=== PATIENT | female | born 1990 | race Hispanic/Latino ===

== ENCOUNTER 2018-05-29 04:01 | Emergency (ER) | payer SELFPAY ==
[~2018-05-29] VITALS: Ht 155.4 cm; Wt 80.0 kg
[2018-05-29 05:00] LABS: INFLUENZA A NONE DETECTED (NONE DETECT); INFLUENZA B NONE DETECTED (NONE DETECT)
[2018-05-29] MEDS ORDERED: AMOXICILLIN500 MG PO (05:28)
[2018-05-29 05:50] VITALS: BP 120/82
== END 2018-05-29 05:50 | disposition home or self-care (01) | DRG 153 ==
LOC: ED 04:01
PROVIDERS: Emergency Medicine
DX: J02.9 Acute pharyngitis, unspecified (principal)

== ENCOUNTER 2020-04-16 21:54 | Emergency (ER) | payer MEDICAID ==
[~2020-04-16] VITALS: Ht 155.4 cm; Wt 81.0 kg
[~2020-04-16 21:54] MED LIST: AMOXICILLIN500 MG PO
[2020-04-16 23:11] LABS: IMMATURE GRANULOCYTES 0.4 % (0.0-5.0); MEAN CORPUSCULAR HGB 29.1 pG CALC (26.0-32.0); MEAN CORPUSCULAR HGB CONC 32.2 g/dL CAL (32.0-36.0); NEUT# 16.4 thou/uL (2.00-7.15); RED BLOOD COUNT 4.26 mill/uL (4.20-5.60); RED CELL DISTRI WIDTH 11.8 % (11.5-15.5)
[2020-04-16 23:20] LABS: HEMATOCRIT 38.5 % (37.0-47.0); HEMOGLOBIN 12.4 g/dl (12.0-16.0); MEAN CELL VOLUME 90.4 fL CALC (80.0-100.0)
[2020-04-16 23:25] LABS: ANION GAP 14 (6-22 (CALC)); BUN 10 mg/dL (7-17); BUN/CREATININE RATIO 15 (12-20 (CALC)); CARBON DIOXIDE 25 mmol/l (22-30); CHLORIDE 100 mmol/l (95-108); CREATININE 0.7 mg/dL (0.5-1.0); GFR > 60 ML/MIN (>=60 (CALC)); GFR FOR AFR.AMER. > 60 ML/MIN (>=60 (CALC)); POTASSIUM 4.1 mmol/l (3.5-5.1); SODIUM 135 mmol/l (137-146)
[2020-04-16 23:37] LABS: ALBUMIN 4.6 g/dL (3.2-5.0); ALKALINE PHOSPHATASE 96 u/l (38-126); BILIRUBIN, TOTAL 1.2 mg/dL (0.0-1.4); SGOT/AST 53 u/l (14-36); TOTAL PROTEIN 8.2 g/dL (6.3-8.2)
[2020-04-16 23:50] LABS: URINE BILIRUBIN - DIPSTICK NEGATIVE (NEGATIVE); URINE BLOOD DIPSTICK NEGATIVE (NEGATIVE); URINE COLOR YELLOW; URINE GLUCOSE - DIPSTICK NEGATIVE (NEGATIVE); URINE KETONE NEGATIVE (NEGATIVE); URINE LEUK ESTERASE TRACE (NEGATIVE); URINE NITRITE - DIPSTICK NEGATIVE (Negative); URINE PROTEIN - DIPSTICK NEGATIVE (NEG-TRACE); URINE UROBILINOGEN - DIPSTICK 0.2 E.U./dL (0.2)
[2020-04-17 02:09] LABS: HEMATOCRIT 33.7 % (37.0-47.0); IMMATURE GRANULOCYTES 0.5 % (0.0-5.0); MEAN CELL VOLUME 91.1 fL CALC (80.0-100.0); MEAN CORPUSCULAR HGB 29.7 pG CALC (26.0-32.0); MEAN CORPUSCULAR HGB CONC 32.6 g/dL CAL (32.0-36.0); NEUT# 15.49 thou/uL (2.00-7.15); RED BLOOD COUNT 3.7 mill/uL (4.20-5.60); RED CELL DISTRI WIDTH 11.8 % (11.5-15.5)
[2020-04-17] MEDS ORDERED: AUGMENTIN500TAB PO (02:28)
[2020-04-17 02:30] VITALS: BP 115/66
== END 2020-04-17 02:30 | disposition home or self-care (01) ==
LOC: ED 21:54
PROVIDERS: Emergency Medicine
DX: J03.90 Acute tonsillitis, unspecified (principal); Z20.828 Contact with and (suspected) exposure to other viral communicable diseases
CPT/HCPCS: Q9967

== ENCOUNTER 2024-06-11 08:43 | Emergency (ER) | payer SELFPAY ==
[2024-06-11] VITALS (7 sets, daily range): BP systolic 112–123; BP diastolic 72–84
[~2024-06-11] VITALS: Ht 154.9 cm; Wt 86.0 kg
[~2024-06-11 08:43] MED LIST changes: +ALPRAZOLAM0.5 M2 PO; +AUGMENTIN500TAB PO; +PAROXETINE10 MG PO
[2024-06-11] MEDS ORDERED: SODIUM CHLORIDE 0.9% 1,000 ML IV ONE (09:00)
[2024-06-11] MEDS ORDERED: ONDANSETRON HCl 4 MG/2 ML SDV IV ONE (09:00)
[2024-06-11 09:28] LABS: BASO% 0.3 % (0-3); EOS% 2.9 % (0-8); HEMOGLOBIN 12.5 g/dl (12.0-16.0); IMMATURE GRANULOCYTES 0.4 % (0.0-5.0); LYMPH% 24.1 % (15-41); MEAN CORPUSCULAR HGB 28.3 pG CALC (26.0-32.0); MEAN CORPUSCULAR HGB CONC 30.5 g/dL CAL (32.0-36.0); MONO% 5.3 % (2-13); NEUT# 7.16 thou/uL (2.00-7.15); RED BLOOD COUNT 4.41 mill/uL (4.20-5.60); RED CELL DISTRI WIDTH 12.6 % (11.5-15.5)
[2024-06-11 09:44] LABS: ALBUMIN 4.4 g/dL (3.2-5.0); BILIRUBIN, TOTAL 1.2 mg/dL (0.02-1.3); CREATININE 0.6 mg/dL (0.5-1.0); POTASSIUM 3.9 mmol/l (3.5-5.1); TOTAL PROTEIN 8.1 g/dL (6.3-8.2)
[2024-06-11] MEDS ORDERED: KETOROLAC TROMETHAMINE 30 MG/ML SDV IV ONE (09:45)
[2024-06-11] MEDS ORDERED: METOCLOPRAMIDE HCL 10 MG/2 ML SDV IV ONE (09:45)
[2024-06-11] MEDS ORDERED: DiphenhydrAMINE HCL 50 MG/ML SDV IV ONE (09:45)
[2024-06-11] MEDS ORDERED: DEXAMETHASONE SOD. PHOSPHATE 10 MG/ML VIAL IV ONE (10:40)
== END 2024-06-11 11:22 | disposition home or self-care (01) | DRG 103 ==
LOC: ED 08:43
PROVIDERS: Family Medicine
DX: R51.9 Headache, unspecified (principal); F41.9 Anxiety disorder, unspecified; Z20.822 Contact with and (suspected) exposure to COVID-19

== ENCOUNTER 2024-07-23 11:08 | Emergency (ER) | payer OTHER ==
[~2024-07-23] VITALS: Ht 154.9 cm; Wt 86.0 kg
[2024-07-23] VITALS (8 sets, daily range): BP systolic 110–141; BP diastolic 71–98
[2024-07-23] MEDS ORDERED: SODIUM CHLORIDE 0.9% 1,000 ML IV STA (11:35)
[2024-07-23] MEDS ORDERED: DiphenhydrAMINE HCL 50 MG/ML SDV IV STA (11:35)
[2024-07-23] MEDS ORDERED: FAMOTIDINE 10MG/ML 2ML SDV IV STA (11:39)
[2024-07-23] MEDS ORDERED: METOCLOPRAMIDE HCL 10 MG/2 ML SDV IV ONE (11:40)
[2024-07-23] MEDS ORDERED: BUTALBITAL-APAP-CAFFEINE 50-325-40 TAB PO ONE (11:40)
[2024-07-23 11:57] LABS: BASO% 0.4 % (0-3); EOS% 2.3 % (0-8); HEMATOCRIT 37.9 % (37.0-47.0); HEMOGLOBIN 12.1 g/dl (12.0-16.0); IMMATURE GRANULOCYTES 0.3 % (0.0-5.0); LYMPH% 33.2 % (15-41); MEAN CELL VOLUME 89.2 fL CALC (80.0-100.0); MEAN CORPUSCULAR HGB 28.5 pG CALC (26.0-32.0); MEAN CORPUSCULAR HGB CONC 31.9 g/dL CAL (32.0-36.0); MONO% 5.6 % (2-13); NEUT# 6.48 thou/uL (2.00-7.15); NEUT% 58.2 % (42-76); RED BLOOD COUNT 4.25 mill/uL (4.20-5.60); RED CELL DISTRI WIDTH 12.1 % (11.5-15.5)
[2024-07-23 12:11] LABS: ALBUMIN 4.4 g/dL (3.2-5.0); BILIRUBIN, TOTAL 0.9 mg/dL (0.02-1.3); CREATININE 0.6 mg/dL (0.5-1.0); POTASSIUM 3.3 mmol/l (3.5-5.1); TOTAL PROTEIN 7.7 g/dL (6.3-8.2)
[2024-07-23] MEDS ORDERED: POTASSIUM CHLORIDE 20 MEQ/TAB PO ONE (12:40)
== END 2024-07-23 13:57 | disposition short-term general hospital (02) | DRG 55 ==
LOC: ED 11:08
PROVIDERS: Emergency Medicine
DX: D49.6 Neoplasm of unspecified behavior of brain (principal); F41.9 Anxiety disorder, unspecified
CPT/HCPCS: J1100; J1200; J2765